=== PATIENT | male | born 1990 | race Caucasian/White ===

== ENCOUNTER 2017-04-24 14:43 | Emergency (ER) | payer OTHER ==
[~2017-04-24] VITALS: Ht 177.8 cm; Wt 109.8 kg
[2017-04-24 15:04] VITALS: BP 147/94
--- NOTE | 2017-04-24 15:39 | NUR ---
Patient back from XRAY via wheelchair per tech--to lobby.
--- NOTE | 2017-04-24 15:58 | NUR ---
Patient ambulated to bed 03.
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
[2017-04-24] MEDS ORDERED: KETOROLAC 60 MG/2 ML VIAL IM ONE (16:00)
--- NOTE | 2017-04-24 16:06 | NUR ---
GAVE PAIN MED ORDER.
--- NOTE | 2017-04-24 16:13 | NUR ---
Patient appears to be resting comfortably in bed. BP 141/95; DENIES HEADACHE OR DIZINESS AT THIS TIME, PULSE OX 96% ; MD AWARE. Respirations even and unlabored.WILL CONTINUE TO MONITOR. PAIN 510
--- NOTE | 2017-04-24 17:05 | NUR ---
ER MD DR AYALA REEVALUATING PT AT BEDSIDE.
[2017-04-24 17:22] VITALS: BP 133/96
== END 2017-04-24 17:21 | disposition home or self-care (01) ==
LOC: EDBD 14:43 → MED 14:43
DX: M54.2 Cervicalgia (principal); M25.511 Pain in right shoulder; M25.512 Pain in left shoulder
CPT/HCPCS: 71020; 72040; 73030; 96372; 99284; J1885